=== PATIENT | male | born 1965 | race African-American/Black ===

== ENCOUNTER 2017-01-10 13:03 | Emergency (ER) | payer BC, OTHER ==
[~2017-01-10] VITALS: Ht 182.9 cm; Wt 106.6 kg
--- NOTE | ~2017-01-10 | EKG ---
[address] [place] [address] ELECTROCARDIOGRAM REPORT Name: VICKEY FATIMA Room #: [facility] SVITLANA Rosas#: [id number] Admission: 01/10/17 Attend Phys: Discharge: 01/10/17 Date of : 65 Report #: [id number] THIS REPORT FOR: //name// [facility] ED Test Date: 2017-01-10 Test Time: 13:21:24 Pat Name: VICKEY FATIMA Department: Room: Gender: Pc Tech: HAYDEN : 1965 Requested By: Annabelle Meng Order Number: [id number] MD: Shai Crump Measurements Intervals [place] Rate: 71 P: 67 RI: 232 QRS: 56 QRSD: 94 T: 37 QT: 384 QTc: 418 Interpretive Statements Sinus rhythm Prolonged RI interval No previous ECG available for comparison Electronically Signed On 01-11-2017 8:18:45 CDT by Shai Crump [email or web address] <ELECTRONICALLY SIGNED> By: Shai Crump MD, [facility] 01/11/17 0818 1321 1321 Shai Crump MD, FACC /EPI
[2017-01-10 15:33] LABS: BASOPHILS 1.1 % (0.0-2.0); HEMATOCRIT 38.4 % (42.0-52.0); HEMOGLOBIN 13.4 gm/dL (14.0-18.0); LYMPHOCYTES 24.4 % (24.0-44.0); MCH 35.8 pg (26.0-34.0); MCHC 34.9 g/dL (28.0-37.0); MCV 102.5 fL (80.0-100.0); MONOCYTES 9.9 % (1.0-8.0); PLATELET COUNT 255 thou/uL (150-400); POLYS 63.6 % (36.0-66.0); RBC 3.75 mil/uL (4.50-6.00); RDW 12.3 % (10.5-14.5); WBC 9.4 thou/uL (4.0-11.0)
[2017-01-10 15:34] LABS: MANUAL DIFF NO
[2017-01-10 15:37] LABS: CREATININE 1.4 mg/dL (0.7-1.3); POTASSIUM 3.9 mmol/L (3.5-5.1)
[2017-01-10 15:41] LABS: ALBUMIN 3.9 g/dL (3.4-5.0); TOTAL BILIRUBIN 0.6 mg/dL (<0.1-1.0); TOTAL PROTEIN 8.4 g/dL (6.4-8.2)
[2017-01-10 15:50] LABS: APTT 23.7 Seconds (24.5-32.8); PROTIME 10.4 Seconds (9.3-11.4)
[2017-01-10 16:12] VITALS: BP 113/57
== END 2017-01-10 16:44 | disposition short-term general hospital (02) ==
LOC: ER 13:03
PROVIDERS: Physician Assistant
DX: S12.291A Other nondisplaced fracture of third cervical vertebra, initial encounter for closed fracture (principal); S40.012A Contusion of left shoulder, initial encounter; I10 Essential (primary) hypertension; K21.9 Gastro-esophageal reflux disease without esophagitis; F10.99 Alcohol use, unspecified with unspecified alcohol-induced disorder; W10.8XXA Fall (on) (from) other stairs and steps, initial encounter; Y93.89 Activity, other specified; Y92.89 Other specified places as the place of occurrence of the external cause; Y99.8 Other external cause status